=== PATIENT | male | born 1990 | race African-American/Black ===

== ENCOUNTER 2022-04-11 12:53 | Outpatient (CLI) | payer OTHER, SELFPAY ==
--- NOTE | 2022-04-12 09:33 | P.NEURO_ITS ---
Neurology EEG Report General Information Date of Study: 04/11/22 TEST Routine EEG DIAGNOSIS Seizures CONDITION OF RECORDING Awake, drowsy, and asleep EEG NUMBER [id number] CLINICAL HISTORY Patient reports he has been losing consciousness several times in the past month. No previous history of seizures. EEG DESCRIPTION During the awake state with eyes closed the background consists of 8 Hz posterior dominant rhythm which attenuates appropriately with eye opening. The recording is continuous. There is a well developed anterior-posterior gradient. No significant asymmetries of background activities are noted. With drowsiness there is was waxing and waning of the dominant rhythm with eventual replacement by a mixture of beta, alpha, and theta activity. As the patient enters stage I- II sleep, positive occipital sharp transients of sleep, vertex sharp waves, symmetrical spindles, and K complexes are present. During sleep, there are occasional epileptiform discharges originating from the parasagittal region (C3/C4) as well as left frontal (F3) and right frontal (F4) regions, independently. Photic stimulation was performed which showed appropriate driving response, but did not elicit any abnormal photoparoxysmal features. IMPRESSION This is an abnormal routine EEG due to the presence of occasional epileptiform discharges originating from parasagittal, left frontal, and right frontal regions. This suggestive of decreased threshold to have seizure from a focal- onset mechanism. Clinical correlation is recommended.
== END 2022-04-11 12:54 | disposition home or self-care (01) ==
LOC: ANHNEURO 12:59
PROVIDERS: Visit Provider Psychiatry & Neurology Neurology
DX: R56.9 Unspecified convulsions (principal); R94.01 Abnormal electroencephalogram [EEG]
CPT/HCPCS: 95816

== ENCOUNTER 2022-04-14 10:48 | Outpatient (CLI) | payer OTHER, SELFPAY ==
--- NOTE | ~2022-04-14 | MR_ITS ---
EXAMINATION: MR brain/brain stem wo con DATE: 04/14/2022 11:33 INDICATION: seizure TECHNIQUE: Magnetic resonance imaging (MRI) of the brain and brainstem was performed without intraven ous contrast. Sequences included sagittal and axial T1-weighted SE, axial diffusion-weighted FS EPI A SSET, axial T2*-weighted GRE, axial T2-weighted FLAIR Propeller, and axial T2-weighted Propeller. Pos tcontrast axial and coronal T1-weighted SE was obtained. Apparent diffusion coefficient (ADC) maps we re created. COMPARISON: None. FINDINGS: No abnormal restricted diffusion to suggest acute ischemic infarct. No MRI evidence of hemorrhage or extra-axial collection. No suspicious foci of susceptibility to suggest prior intraparenchymal hemorr katerina. Normal white matter signal.. No evidence of advanced or lobar predominant parenchymal volume lo ss. The basilar cisterns are patent. Flow voids are preserved. Paranasal sinuses are within normal li mits. Globes and orbital contents are within normal limits. IMPRESSION: 1. Normal MR brain findings. Reviewed, dictated and finalized at location K. [facility]
== END 2022-04-14 10:49 | disposition home or self-care (01) ==
PROVIDERS: Visit Provider Psychiatry & Neurology Neurology
DX: G40.909 Epilepsy, unspecified, not intractable, without status epilepticus (principal)
CPT/HCPCS: 70551